=== PATIENT | male | born 1945 | race Caucasian/White ===

== ENCOUNTER → 2016-12-06 | Outpatient (CLI) | payer OTHER ==
--- NOTE | 2016-12-06 12:30 | Diagnostic Imaging Report ---
Examination: Segmental lower extremity pressure assessment and ankle brachial index measurement. Post volume recording waveforms are also obtained in the lower extremities. Indication: Claudication of the right leg Findings: Systolic pressure in the right Upper extremity is 148, and the left Upper extremity is 147 mmHg. RIGHT Lower extremity systolic pressures are: In the mid thigh 186 , in the upper calf 189, and at the ankle 166 DP, and 190 PT. . LEFT Lower extremity systolic pressures are: In the mid thigh 184 , in the upper calf 190, and at the ankle 183 DP, and 189 PT. . [place] on the right is 1.3, and on the left is 1.3. Pulse volume recordings waveforms demonstrate slight dampening of the waveforms. Impression: No significant peripheral arterial disease is suggested based on this exam. Dictated by: Dictated on workstation # [id number]
== END | disposition home or self-care (01) ==
LOC: RAD 09:13
PROVIDERS: ATTEND Internal Medicine Interventional Cardiology
DX: I73.9 Peripheral vascular disease, unspecified (principal)
CPT/HCPCS: 93923

== ENCOUNTER → 2016-12-09 | Outpatient (CLI) | payer OTHER, MEDICARE | LOC: CARD 10:19 → EDUNIT# 11:00 | PROVIDERS: ATTEND Internal Medicine Interventional Cardiology | DX: R53.83 Other fatigue (principal); R06.02 Shortness of breath | CPT/HCPCS: 93225; 93226; 93306 ==

== ENCOUNTER 2019-10-21 05:42 | Emergency (ER) | payer MEDICARE ==
[~2019-10-21] VITALS: Ht 177.8 cm; Wt 104.2 kg
[2019-10-21 05:45] VITALS: BP 172/99
--- NOTE | 2019-10-21 06:09 | ED GU-Male ---
General Chief Complaint: - Urinary Stated Complaint: URINARY PROBLEMS Nursing Triage Note: Patient states that he hasn't been able to urinate since about 0100 today. Patient also states that this has happened several times in the past. Patient states that they usually put a stephen in and send him home. Patient does state that he has been drinking alcohol. Source: patient Exam Limitations: no limitations History of Present Illness Date Seen by Provider: Oct 21, 2019 Time Seen by Provider: 05:55 Initial Comments Patient is a 73-year-old gentleman with no urine output since approximately midnight. Some feeling of fullness and abdominal discomfort. No back pain no syncope no leg pain no loss of neurologic function history of this 3 previous times treated by indwelling Stephen catheter. Timing/Duration: this morning Severity/Quality: moderate Location: suprapubic Radiation: none Activities at Onset: none Prior Genitourinary Problems: similar symptoms Modifying Factors: Improves With Urinating (unable ) Associated Symptoms: abdominal pain; No fever/chills Allergies and Home Medications Allergies Coded Allergies: No Known Drug Allergies (Unverified , 10/21/19) Patient Home Medication List Home Medication List Reviewed: Yes Review of Systems Review of Systems Constitutional: no symptoms reported EENTM: no symptoms reported Respiratory: no symptoms reported Cardiovascular: no symptoms reported Gastrointestinal: no symptoms reported Genitourinary: see HPI Musculoskeletal: no symptoms reported Skin: no symptoms reported Psychiatric/Neurological: No Symptoms Reported Past Uuwqskt-Heeahw-Rbhevg Hx Past Med/Social Hx: Reviewed Nursing Past Med/Soc Hx Patient Social History Alcohol Use: Occasionally Uses Recreational Drug Use: No Smoking Status: Never a Smoker Recent Foreign Travel: No Contact w/Someone Who Travel: No Recent Infectious Disease Expo: No Physical Abuse: No Sexual Abuse: No Mistreated: No Fear: No Seasonal Allergies Seasonal Allergies: No Past Medical History Surgeries: No Respiratory: No Cardiac: Yes Hypertension Neurological: Yes TIA Genitourinary: Yes (Urinary Retention) Prostate Problems Gastrointestinal: No Musculoskeletal: No Endocrine: No HEENT: No Cancer: No Psychosocial: No Integumentary: No Physical Exam Vital Signs Vital Signs - First Documented 10/21/19 05:45 Temp 36.3 Pulse 74 Resp 20 B/P (MAP) 172/99 (123) Pulse Ox 98 O2 Delivery Room Air Capillary Refill : Less Than 3 Seconds Height, Weight, BMI Height: '" Weight: lbs. oz. kg; 32.00 BMI Method: General Appearance: WD/WN, mild distress HEENT: normal ENT inspection; No scleral icterus (R), No scleral icterus (L), No photophobia Neck: non-tender, full range of motion, supple, normal inspection Cardiovascular: normal peripheral pulses, regular rate, rhythm, no edema Respiratory: chest non-tender, lungs clear, normal breath sounds, no respiratory distress Gastrointestinal: normal bowel sounds, distended, tenderness (suprapubic) Back: normal inspection Extremities: normal range of motion, non-tender, normal inspection, no pedal edema, no calf tenderness Neurologic/Psychiatric: propagation manager II-XII nml as tested, no motor/sensory deficits, alert Skin: normal color, warm/dry Progress/Results/Core Measures Suspected Sepsis Recent Fever Within 48 Hours: No Infection Criteria Present: None New/Unexplained Altered Menta: No Sepsis Screen: No Definite Risk SIRS Temperature: Pulse: 74 Respiratory Rate: 20 Blood Pressure 172 /99 Mean: 123 Results/Orders My Orders Orders - DANNY ROLDAN DO Ua Culture If Indicated (10/21/19 06:00) Vital Signs/I&O 10/21/19 05:45 Temp 36.3 Pulse 74 Resp 20 B/P (MAP) 172/99 (123) Pulse Ox 98 O2 Delivery Room Air Capillary Refill : Less Than 3 Seconds Blood Pressure Mean: 123 Progress Note : Time: 06:06 Progress Note Patient presents with recurrent urinary retention. After drinking large quantities of beer history of the same in the past no red flags physical exam is unremarkable plan will be indwelling Stephen catheter for 3 days PCP follow-up for bladder removal in 3 days and routine urine culture sent Departure Communication (Admissions) 6:15 1 L of urine removed patient feeling much more comfortable Impression Primary Impression: Urinary retention Disposition: 01 HOME, SELF-CARE Condition: Improved Departure-Patient Inst. Referrals: NO,LOCAL PHYSICIAN (PCP/Family) Primary Care Physician 3 days for catheter removal in trial avoid Patient Instructions: How to Care for Your Stephen Catheter, Male, Urinary Retention DANNY ROLDAN DO Oct 21, 2019 06:09
[2019-10-21 06:16] LABS: BILIRUBIN,URINE NEGATIVE (NEGATIVE); CLARITY,URINE CLEAR; COLOR,URINE YELLOW; GLUCOSE, URINE (UA) NEGATIVE (NEGATIVE); KETONES,URINE NEGATIVE (NEGATIVE); LEUKOCYTE ESTERASE ,URINE NEGATIVE (NEGATIVE); NITRITE,URINE NEGATIVE (NEGATIVE); PH,URINE 5.5 (5-9); PROTEIN,URINE NEGATIVE (NEGATIVE)
[2019-10-21 06:17] LABS: BACTERIA,URINE TRACE /HPF; SQUAMOUS EPITHELIAL CELL,UR RARE /HPF
== END 2019-10-21 06:25 | disposition home or self-care (01) ==
LOC: EDUNIT# 05:42 → ER FS 05:45
DX: R33.9 Retention of urine, unspecified (principal); I10 Essential (primary) hypertension
CPT/HCPCS: 51702; 81000; 87088

== ENCOUNTER 2019-12-15 02:42 | Emergency (ER) | payer MEDICARE ==
[2019-12-15 03:22] LABS: BACTERIA,URINE NEGATIVE /HPF; BILIRUBIN,URINE NEGATIVE (NEGATIVE); CLARITY,URINE CLEAR; COLOR,URINE YELLOW; GLUCOSE, URINE (UA) NEGATIVE (NEGATIVE); KETONES,URINE NEGATIVE (NEGATIVE); LEUKOCYTE ESTERASE ,URINE NEGATIVE (NEGATIVE); NITRITE,URINE NEGATIVE (NEGATIVE); PH,URINE 5.5 (5-9); PROTEIN,URINE NEGATIVE (NEGATIVE); RBC,URINE RARE /HPF
--- NOTE | 2019-12-15 03:57 | ED General ---
General Chief Complaint: - Urinary Stated Complaint: URNINARY PROBLEMS Nursing Triage Note: Pt states he hasn't been able to urinate for about 5 hours. Nursing Sepsis Screen: No Definite Risk Source of Information: Patient Exam Limitations: No Limitations History of Present Illness Date Seen by Provider: Dec 15, 2019 Time Seen by Provider: 13:45 Initial Comments States he can't pee because he drank too much beer tonight. Admits this happens occasionally, last occurrence about 1 yr ago. Denies abdominal, flank or back pain. Denies fever or chills. Taking prostate medication and has a Urologist in [place] Allergies and Home Medications Allergies Coded Allergies: No Known Drug Allergies (Unverified , 10/21/19) Patient Home Medication List Home Medication List Reviewed: Yes Review of Systems Review of Systems Constitutional: no symptoms reported; No fever, No malaise Gastrointestinal: No abdominal pain, No constipation, No diarrhea, No loss of appetite, No nausea, No vomiting Genitourinary: see HPI, decreased output; No dysuria, No incontinence; pain (2 to inability to void) Musculoskeletal: No back pain, No muscle pain Past Njbbqfc-Dsfiqm-Vzqqme Hx Past Med/Social Hx: Reviewed Nursing Past Med/Soc Hx Patient Social History Alcohol Use: Occasionally Uses Recreational Drug Use: No Smoking Status: Never a Smoker 2nd Hand Smoke Exposure: No Recent Foreign Travel: No Contact w/Someone Who Travel: No Recent Infectious Disease Expo: No Physical Abuse: No Sexual Abuse: No Seasonal Allergies Seasonal Allergies: No Past Medical History Surgeries: No Respiratory: No Cardiac: Yes Hypertension Neurological: Yes TIA Genitourinary: Yes (Urinary Retention) Prostate Problems Gastrointestinal: No Musculoskeletal: No Endocrine: No HEENT: No Cancer: No Psychosocial: No Integumentary: No Blood Disorders: No Physical Exam Vital Signs Vital Signs - First Documented 12/15/19 02:53 Temp 36.4 Pulse 74 Resp 16 B/P (MAP) 171/87 (115) Pulse Ox 96 O2 Delivery Room Air Capillary Refill : Less Than 3 Seconds Height, Weight, BMI Height: '" Weight: lbs. oz. kg; 32.00 BMI Method: General Appearance: No Apparent Distress, WD/WN Gastrointestinal: Normal Bowel Sounds, Non Tender, Soft Back: Normal Inspection, No CVA Tenderness, No Vertebral Tenderness Neurologic/Psychiatric: Alert, Oriented x3, Normal Mood/Affect Progress/Results/Core Measures Suspected Sepsis Recent Fever Within 48 Hours: No Infection Criteria Present: None New/Unexplained Altered Menta: No Sepsis Screen: No Definite Risk SIRS Temperature: Pulse: 74 Respiratory Rate: 16 Blood Pressure 171 /87 Mean: 115 Results/Orders Lab Results Laboratory Tests Test 12/15/19 03:05 Range/Units Urine Color YELLOW Urine Clarity CLEAR Urine pH 5.5 5-9 Urine Specific [place] <=1.005 1.016-1.022 Urine Protein NEGATIVE NEGATIVE Urine Glucose (UA) NEGATIVE NEGATIVE Urine Ketones NEGATIVE NEGATIVE Urine Nitrite NEGATIVE NEGATIVE Urine Bilirubin NEGATIVE NEGATIVE Urine Urobilinogen 0.2 < = 1.0 MG/DL Urine Leukocyte Esterase NEGATIVE NEGATIVE Urine RBC (Auto) 1+ H NEGATIVE Urine RBC RARE /HPF Urine WBC NONE /HPF Urine Squamous Epithelial Cells 2-5 /HPF Urine Crystals NONE /LPF Urine Bacteria NEGATIVE /HPF Urine Casts NONE /LPF Urine Mucus NEGATIVE /LPF Urine Culture Indicated NO My Orders Orders - CALLUM ARTHUR DO Catheter(Urinary) Insert & Ass (12/15/19 03:18) Ua Culture If Indicated (12/15/19 03:18) Vital Signs/I&O 12/15/19 02:53 Temp 36.4 Pulse 74 Resp 16 B/P (MAP) 171/87 (115) Pulse Ox 96 O2 Delivery Room Air Capillary Refill : Less Than 3 Seconds Blood Pressure Mean: 115 Progress Note : Progress Note 1 liter of clear urine after catheter inserted UA clear without sign of infection Departure Impression Primary Impression: Bladder outlet obstruction Disposition: 01 HOME, SELF-CARE Condition: Improved Departure-Patient Inst. Decision time for Depature: 03:58 Referrals: NO,LOCAL PHYSICIAN (PCP/Family) Primary Care Physician Patient Instructions: Urinary Obstruction (DC) Add. Discharge Instructions: See your Urologist in [place] ([place]?) next week to have your catheter remov ed. All discharge instructions reviewed with patient and/or family. Voiced understanding. CALLUM ARTHUR DO Dec 15, 2019 03:57
[2019-12-15 04:10] VITALS: BP 171/87
== END 2019-12-15 04:10 | disposition home or self-care (01) ==
LOC: EDUNIT# 02:42 → ER FS 02:44
DX: N32.0 Bladder-neck obstruction (principal); Z86.73 Personal history of transient ischemic attack (TIA), and cerebral infarction without residual deficits
CPT/HCPCS: 51702; 81000

== ENCOUNTER → 2022-06-11 | Outpatient (CLI) | payer MEDICARE ==
--- NOTE | 2022-06-11 16:39 | Diagnostic Imaging Report ---
EXAMINATION: Right knee radiographs, 3 views. COMPARISON: None. HISTORY: 76-year-old male, right knee pain. FINDINGS: There is severe medial and patellofemoral compartment joint space loss. There are medial and patellofemoral compartment osteophytes. There is no large knee joint effusion. There is no identified acute fracture. There are vascular related calcifications. There is an ossification projecting in the region of the lateral compartment which may reflect an intra-articular body measuring approximately 8 x 4 mm in size. IMPRESSION: 1. Severe medial and patellofemoral compartment osteoarthritis with potential 8 x 4 mm ossified intra-articular body. Dictated by: Dictated on workstation # [id number]
== END ==
LOC: RAD FS 10:17
PROVIDERS: ATTEND Nurse Practitioner
DX: M17.11 Unilateral primary osteoarthritis, right knee (principal)
CPT/HCPCS: 73562